=== PATIENT | female | born 2000 | race Hispanic/Latino ===

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

== ENCOUNTER 2021-02-18 21:09 | Emergency (ER) | payer MEDICAID ==
[~2021-02-18] VITALS: Ht 165.1 cm; Wt 106.6 kg
[2021-02-18] MEDS ORDERED: IBUPROFEN 800 MG TAB PO ONE (21:30)
[2021-02-18] MEDS ORDERED: ACETAMINOPHEN 500 MG TABLET PO ONE (21:30)
[2021-02-18] MEDS ORDERED: 0.9%NACL 1000ML 1,000 ML IV ONE (21:30)
[2021-02-18 21:49] LABS: BASOPHILS % (AUTO) 0.7 % (0.0-5.0); EOSINOPHILS % (AUTO) 10.7 % (0.0-8.0); HEMATOCRIT 41.4 % (36-48); LYMPHOCYTES % (AUTO) 18.4 % (21.0-51.0); MEAN CORPUSCULAR HEMOGLOBIN 28.8 pg (27.0-33.0); MEAN CORPUSCULAR HGB CONC 33.6 g/dL (32.0-36.0); MEAN CORPUSCULAR VOLUME 85.7 fL (80-100); MONOCYTES % (AUTO) 6.7 % (3.0-13.0); NEUTROPHILS % (AUTO) 63.2 % (40.0-77.0); PLATELET COUNT (AUTO) 303 K/uL (130-400); RED BLOOD CELL COUNT(AUTO) 4.83 MIL/uL (4.00-5.50); WHITE BLOOD COUNT (AUTO) 9.2 K/uL (4.8-10.8)
[2021-02-18 21:55] LABS: CREATININE 0.6 mg/dL (0.5-1.5); POTASSIUM 3.4 mmol/L (3.5-5.1)
[2021-02-18 21:57] LABS: APPEARANCE,URINE SL CLOUDY (CLEAR); BILIRUBIN,URINE NEGATIVE (NEGATIVE); COLOR,URINE YELLOW (YELLOW); GLUCOSE, URINE (UA) NEGATIVE (NEGATIVE); KETONES,URINE 5 mg/dL (NEGATIVE); LEUKOCYTE ESTERASE ,URINE TRACE (NEGATIVE); NITRATE,URINE NEGATIVE (NEGATIVE); OCCULT BLOOD,URINE SMALL (NEGATIVE); PH,URINE 5.5 (5.0-8.0); PROTEIN,URINE TRACE mg/dL (NEGATIVE)
[2021-02-18 21:59] LABS: ALBUMIN 3.7 g/dL (3.5-5.0); BILIRUBIN,TOTAL 0.9 mg/dL (0.2-1.0); TOTAL PROTEIN, SERUM 7.9 g/dL (6.0-8.3)
[2021-02-18 22:01] LABS: HCG,QUAL RESULT NEGATIVE (NEGATIVE)
[2021-02-18 22:18] LABS: BACTERIA,URINE Few /HPF (None Seen); SQUAMOUS EPITHELIAL CELL,UR Moderate /HPF (0-2)
[2021-02-18 22:19] LABS: MUCUS,URINE Rare LPF (None Seen)
[2021-02-18] MEDS ORDERED: POTASSIUM BICARB/CIT AC 25 MEQ TABLET.EFF PO ONE (22:30)
[2021-02-18] MEDS ORDERED: CEFTRIAXONE 1G VIAL IVP ONE (22:30)
[2021-02-18] MEDS ORDERED: CEPH500B PO (23:06)
[2021-02-18] MEDS ORDERED: IBUP-1552 PO (23:06)
[2021-02-18 23:07] VITALS: BP 118/72
[2021-02-18] MEDS ORDERED: ONDA4TAB10 PO (23:20)
[2021-02-18] MEDS ORDERED: ONDANSETRON 4MG INJ ONE (23:21)
[2021-02-18] MEDS ORDERED: ONDANSETRON 4MG INJ IVP ONE (23:30)
== END 2021-02-18 23:33 | disposition home or self-care (01) ==
LOC: EDH 21:09
DX: S93.401A Sprain of unspecified ligament of right ankle, initial encounter (principal); S80.11XA Contusion of right lower leg, initial encounter; S90.31XA Contusion of right foot, initial encounter; N39.0 Urinary tract infection, site not specified; R03.0 Elevated blood-pressure reading, without diagnosis of hypertension; Z20.822 Contact with and (suspected) exposure to COVID-19; E66.9 Obesity, unspecified; Z68.39 Body mass index [BMI] 39.0-39.9, adult; Z79.1 Long term (current) use of non-steroidal anti-inflammatories (NSAID); Z79.899 Other long term (current) drug therapy; W01.0XXA Fall on same level from slipping, tripping and stumbling without subsequent striking against object, initial encounter; Y93.89 Activity, other specified; Y92.89 Other specified places as the place of occurrence of the external cause; Y99.8 Other external cause status
CPT/HCPCS: 36415; 71045; 73590; 73600; 73630; 80053; 81001; 81025; 83605; 85025; 86140; 87040 ×2; 87635; 87804 ×2; 87880; 96361; 96374; 99284; C9803; J0696; J2405

== ENCOUNTER 2022-01-05 11:08 | Emergency (ER) | payer MEDICAID ==
[~2022-01-05] VITALS: Ht 165.1 cm; Wt 124.7 kg
[~2022-01-05 11:08] MED LIST: CEPH500B PO; IBUP-1552 PO; ONDA4TAB10 PO
[2022-01-05] MEDS ORDERED: ONDANSETRON 4MG INJ IVP ONE ×2 (11:30→13:30)
[2022-01-05 11:55] LABS: APPEARANCE,URINE SL CLOUDY (CLEAR); BILIRUBIN,URINE NEGATIVE (NEGATIVE); COLOR,URINE YELLOW (YELLOW); GLUCOSE, URINE (UA) NEGATIVE (NEGATIVE); KETONES,URINE NEGATIVE (NEGATIVE); LEUKOCYTE ESTERASE ,URINE NEGATIVE (NEGATIVE); NITRATE,URINE NEGATIVE (NEGATIVE); OCCULT BLOOD,URINE NEGATIVE (NEGATIVE); PROTEIN,URINE NEGATIVE (NEGATIVE); UROBILINOGEN,URINE 0.2 mg/dL (0.2-1.0)
[2022-01-05 11:59] LABS: CREATININE 0.5 mg/dL (0.5-1.5); POTASSIUM 4.2 mmol/L (3.5-5.1)
[2022-01-05 12:03] LABS: ALBUMIN 3.8 g/dL (3.5-5.0); TOTAL PROTEIN, SERUM 8.2 g/dL (6.0-8.3)
[2022-01-05 12:05] LABS: BASOPHILS % (AUTO) 0.9 % (0.0-5.0); EOSINOPHILS % (AUTO) 1.2 % (0.0-8.0); HEMATOCRIT 42.8 % (36-48); LYMPHOCYTES % (AUTO) 29.4 % (21.0-51.0); MEAN CORPUSCULAR HEMOGLOBIN 28.9 pg (27.0-33.0); MEAN CORPUSCULAR HGB CONC 34.1 g/dL (32.0-36.0); MEAN CORPUSCULAR VOLUME 84.6 fL (80-100); MONOCYTES % (AUTO) 7.3 % (3.0-13.0); NEUTROPHILS % (AUTO) 61.1 % (40.0-77.0); PLATELET COUNT (AUTO) 330 K/uL (130-400); RED BLOOD CELL COUNT(AUTO) 5.06 MIL/uL (4.00-5.50); RED CELL DISTRIBUTION WIDTH 12.6 % (11.0-15.5); WHITE BLOOD COUNT (AUTO) 8.1 K/uL (4.8-10.8)
[2022-01-05] MEDS ORDERED: KETOROLAC 15MG/ML VIAL (15MG/ML) IV ONE (13:30)
[2022-01-05] MEDS ORDERED: 0.9%NACL 1000ML 1,000 ML IV ONE (13:30)
[2022-01-05] MEDS ORDERED: MORPHINE 2 MG SYG IVP ONE (13:30)
[2022-01-05] MEDS ORDERED: FAMOTIDINE 20MG VIAL IV ONE (13:30)
[2022-01-05 15:04] VITALS: BP 110/53
[2022-01-05] MEDS ORDERED: DICY20TA2 PO (15:04)
[2022-01-05] MEDS ORDERED: BACI1CAP6 PO (15:04)
[2022-01-05] MEDS ORDERED: ONDA4TAB10 PO (15:04)
== END 2022-01-05 15:48 | disposition home or self-care (01) ==
LOC: EDH 11:08
DX: K52.9 Noninfective gastroenteritis and colitis, unspecified (principal); Z79.899 Other long term (current) drug therapy
CPT/HCPCS: 99284; 96374; 96375; 76705; 96361; 80053; 83690; 85025; 81003; 81025; 36415; 96376; J7030; J2405 ×2; J1885; S0028; J3490

== ENCOUNTER 2022-06-30 09:17 | Emergency (ER) | payer MEDICAID ==
[~2022-06-30] VITALS: Ht 165.1 cm; Wt 127.0 kg
[~2022-06-30 09:17] MED LIST changes: +BACI1CAP6 PO; +DICY20TA2 PO
[2022-06-30 09:40] LABS: BASOPHILS % (AUTO) 0.7 % (0.0-5.0); EOSINOPHILS % (AUTO) 1.8 % (0.0-8.0); HEMATOCRIT 46.8 % (36-48); LYMPHOCYTES % (AUTO) 39.8 % (21.0-51.0); MEAN CORPUSCULAR HGB CONC 33.1 g/dL (32.0-36.0); MEAN CORPUSCULAR VOLUME 84.6 fL (80-100); MONOCYTES % (AUTO) 6.8 % (3.0-13.0); NEUTROPHILS % (AUTO) 50.7 % (40.0-77.0); PLATELET COUNT (AUTO) 321 K/uL (130-400); RED BLOOD CELL COUNT(AUTO) 5.53 MIL/uL (4.00-5.50); RED CELL DISTRIBUTION WIDTH 12.7 % (11.0-15.5)
[2022-06-30 10:14] LABS: CREATININE 0.6 mg/dL (0.5-1.5); POTASSIUM 3.9 mmol/L (3.5-5.1)
[2022-06-30 10:19] LABS: ALBUMIN 3.7 g/dL (3.5-5.0)
[2022-06-30 11:00] VITALS: BP 132/76
[2022-06-30 11:25] LABS: APPEARANCE,URINE CLOUDY (CLEAR); BILIRUBIN,URINE NEGATIVE (NEGATIVE); COLOR,URINE YELLOW (YELLOW); GLUCOSE, URINE (UA) NEGATIVE (NEGATIVE); KETONES,URINE NEGATIVE (NEGATIVE); LEUKOCYTE ESTERASE ,URINE 75 Leu/uL (NEGATIVE); NITRATE,URINE NEGATIVE (NEGATIVE); OCCULT BLOOD,URINE NEGATIVE (NEGATIVE); PROTEIN,URINE 10 mg/dL (NEGATIVE); UROBILINOGEN,URINE 0.2 mg/dL (0.2-1.0)
[2022-06-30 11:32] LABS: HCG,QUALITATIVE URINE NEGATIVE (NEGATIVE)
[2022-06-30 11:33] LABS: MUCUS,URINE RARE LPF (None Seen); SQUAMOUS EPITHELIAL CELL,UR MANY /HPF (0-2)
[2022-06-30] MEDS ORDERED: CIPR-278 PO (11:52)
[2022-06-30] MEDS ORDERED: LOPE2CAP PO (11:52)
[2022-06-30] MEDS ORDERED: ONDA4TAB10 PO (11:52)
== END 2022-06-30 12:25 | disposition home or self-care (01) ==
LOC: EDH 09:17
DX: K52.9 Noninfective gastroenteritis and colitis, unspecified (principal); E66.9 Obesity, unspecified; Z20.822 Contact with and (suspected) exposure to COVID-19; Z79.899 Other long term (current) drug therapy; Z68.42 Body mass index [BMI] 45.0-49.9, adult
CPT/HCPCS: 99283; 87635; 80053; 85025; 87088; 87804 ×2; 81001; 81025; 36415; C9803

== ENCOUNTER 2022-12-14 08:03 | Emergency (ER) | payer MEDICAID ==
[~2022-12-14] VITALS: Ht 165.1 cm; Wt 127.0 kg
[~2022-12-14 08:03] MED LIST changes: +CIPR-278 PO; +LOPE2CAP PO
[2022-12-14 08:55] LABS: APPEARANCE,URINE CLOUDY (CLEAR); BILIRUBIN,URINE SMALL mg/dL (NEGATIVE); COLOR,URINE ORANGE (YELLOW); GLUCOSE, URINE (UA) 100 mg/dL (NEGATIVE); KETONES,URINE NEGATIVE (NEGATIVE); LEUKOCYTE ESTERASE ,URINE LARGE Leu/uL (NEGATIVE); NITRATE,URINE POSITIVE (NEGATIVE); OCCULT BLOOD,URINE MODERATE (NEGATIVE); PH,URINE 5.5 (5.0-8.0); PROTEIN,URINE 100 mg/dL (NEGATIVE); UROBILINOGEN,URINE >=8.0 mg/dL (0.2-1.0)
[2022-12-14 08:58] LABS: HCG,QUALITATIVE URINE NEGATIVE (NEGATIVE)
[2022-12-14 09:12] LABS: BASOPHILS % (AUTO) 0.5 % (0.0-5.0); EOSINOPHILS % (AUTO) 1.1 % (0.0-8.0); LYMPHOCYTES % (AUTO) 26.9 % (21.0-51.0); MEAN CORPUSCULAR HEMOGLOBIN 28.3 pg (27.0-33.0); MEAN CORPUSCULAR HGB CONC 32.7 g/dL (32.0-36.0); MEAN CORPUSCULAR VOLUME 86.4 fL (80-100); MONOCYTES % (AUTO) 5.2 % (3.0-13.0); NEUTROPHILS % (AUTO) 66.1 % (40.0-77.0); PLATELET COUNT (AUTO) 312 K/uL (130-400); RED BLOOD CELL COUNT(AUTO) 5.09 MIL/uL (4.00-5.50); RED CELL DISTRIBUTION WIDTH 12.4 % (11.0-15.5); WHITE BLOOD COUNT (AUTO) 9.1 K/uL (4.8-10.8)
[2022-12-14 09:13] LABS: BACTERIA,URINE Few /HPF (None Seen); WBC,URINE 51-100 /HPF (0-1)
[2022-12-14 09:14] LABS: TRICHOMONAS,URINE Rare /LPF (None Seen)
[2022-12-14 09:58] LABS: ALANINE AMINOTRANSFERASE 48 U/L (12-78); ALBUMIN 3.5 g/dL (3.5-5.0); ASPARTATE AMINOTRANSFERASE 22 U/L (10-37); CARBON DIOXIDE 26 mmol/L (21-32); CHLORIDE 101 mmol/L (101-111); CREATININE 0.6 mg/dL (0.5-1.5); GLOMERULAR FILTR. RATE CALC 131 mL/min (>90); GLUCOSE,RANDOM 91 mg/dL (70-105); POTASSIUM 3.6 mmol/L (3.5-5.1); SODIUM SERUM 134 mmol/L (136-145); TOTAL PROTEIN, SERUM 7.5 g/dL (6.0-8.3); UREA NITROGEN, BLOOD 6 mg/dL (7-18)
[2022-12-14 10:00] LABS: LIPASE < 50 U/L (114-286)
[2022-12-14] MEDS ORDERED: CEFTRIAXONE 2GM VIAL IVPB ONE (11:30)
[2022-12-14] MEDS ORDERED: 0.9%NACL 1000ML 1,000 ML IV ONE (11:30)
[2022-12-14] MEDS ORDERED: KETOROLAC 30MG VIAL (30MG/ML) IVP ONE (11:30)
[2022-12-14] MEDS ORDERED: CEPH500B PO (11:37)
[2022-12-14] MEDS ORDERED: PHEN-776 PO (11:37)
[2022-12-14] MEDS ORDERED: PHENAZOPYRIDINE HCL 200 MG TABLET PO ONE (12:00)
[2022-12-14 12:15] VITALS: BP 126/75
== END 2022-12-14 13:00 | disposition home or self-care (01) ==
LOC: EDH 08:03
DX: R11.2 Nausea with vomiting, unspecified (principal); N39.0 Urinary tract infection, site not specified; E66.01 Morbid (severe) obesity due to excess calories; Z68.42 Body mass index [BMI] 45.0-49.9, adult; Z79.899 Other long term (current) drug therapy
CPT/HCPCS: 99284; 96365; 96375; 80053; 84703; 83690; 85025; 87077; 87088; 87186; 81001; 81025; 36415; J0696; J1885

== ENCOUNTER → 2022-12-15 | Emergency (ER) | payer MEDICAID ==
[~2022-12-15] VITALS: Ht 165.1 cm; Wt 127.0 kg
[~2022-12-15] MED LIST changes: +PHEN-776 PO
[2022-12-15 10:33] VITALS: BP 138/73
== END ==
LOC: EDH 10:31
DX: N39.0 Urinary tract infection, site not specified (principal); Z53.21 Procedure and treatment not carried out due to patient leaving prior to being seen by health care provider
CPT/HCPCS: 99281

== ENCOUNTER 2023-06-07 17:08 | Emergency (ER) | payer MEDICAID, OTHER ==
[~2023-06-07] VITALS: Ht 165.1 cm; Wt 131.5 kg
[~2023-06-07 17:08] MED LIST changes: +NITR100C PO
[2023-06-07 17:56] VITALS: BP 159/97; PULSE 85; RESP 18
[2023-06-07] MEDS ORDERED: SULF1TAB42 PO (20:08)
== END 2023-06-07 20:24 | disposition home or self-care (01) ==
LOC: EDH 17:08
DX: N39.0 Urinary tract infection, site not specified (principal); E66.9 Obesity, unspecified; M54.50 Low back pain, unspecified; Z79.899 Other long term (current) drug therapy

== ENCOUNTER 2023-10-31 16:43 | Emergency (ER) | payer OTHER ==
[~2023-10-31] VITALS: Ht 165.1 cm; Wt 131.1 kg
[~2023-10-31 16:43] MED LIST changes: +ONDA-243 PO; -ONDA4TAB10 PO; +SULF1TAB42 PO
[2023-10-31 17:06] LABS: BASOPHILS # (AUTO) 0.05 K/uL (0.00-0.20); BASOPHILS % (AUTO) 0.6 % (0.0-5.0); EOSINOPHILS % (AUTO) 1.2 % (0.0-8.0); HEMATOCRIT 42.8 % (36-48); IMMATURE GRANULOCYTE ABSOLUTE 0.01 K/uL (0-1); LYMPHOCYTES % (AUTO) 36.2 % (21.0-51.0); MEAN CORPUSCULAR HEMOGLOBIN 28.9 pg (27.0-33.0); MEAN CORPUSCULAR HGB CONC 34.3 g/dL (32.0-36.0); MEAN CORPUSCULAR VOLUME 84.3 fL (79-99); MONOCYTES # (AUTO) 0.7 K/uL (0.1-1.0); MONOCYTES % (AUTO) 8.2 % (3.0-13.0); NEUTROPHILS # (AUTO) 4.5 K/uL (1.8-7.7); NEUTROPHILS % (AUTO) 53.7 % (40.0-77.0); PLATELET COUNT (AUTO) 351 K/uL (130-400); RED BLOOD CELL COUNT(AUTO) 5.08 MIL/uL (4.00-5.50); RED CELL DISTRIBUTION WIDTH 12.6 % (11.0-15.5); WHITE BLOOD COUNT (AUTO) 8.3 K/uL (4.8-10.8)
[2023-10-31] MEDS: 0.9%NACL 1000ML 1,000 ML IV ONE (17:09)
[2023-10-31 17:19] LABS: CREATININE 0.5 mg/dL (0.5-1.0); MAGNESIUM 1.7 mg/dL (1.80-2.40); POTASSIUM 3.1 mmol/L (3.5-5.1)
[2023-10-31 17:34] LABS: APPEARANCE,URINE CLOUDY (CLEAR); BILIRUBIN,URINE NEGATIVE (NEGATIVE); COLOR,URINE YELLOW (YELLOW); GLUCOSE, URINE (UA) NEGATIVE (NEGATIVE); KETONES,URINE NEGATIVE (NEGATIVE); LEUKOCYTE ESTERASE ,URINE 25 Leu/uL (NEGATIVE); NITRATE,URINE NEGATIVE (NEGATIVE); OCCULT BLOOD,URINE SMALL (NEGATIVE); PROTEIN,URINE NEGATIVE (NEGATIVE); UROBILINOGEN,URINE 0.2 mg/dL (0.2-1.0)
[2023-10-31 17:37] LABS: ADD UA MICROSCOPIC YES
[2023-10-31 17:38] LABS: MUCUS,URINE RARE LPF (None Seen); RBC,URINE 26-50 /HPF (0-1); SQUAMOUS EPITHELIAL CELL,UR MANY /HPF (0-2); YEAST,URINE BUDDING RARE /HPF (None Seen)
[2023-10-31] MEDS: POTASSIUM BICARB/CIT AC 25 MEQ TABLET.EFF PO ONE (17:51)
[2023-10-31] MEDS: MAGNESIUM 2GM PREMIX 50ML 50 ML IV SCH (17:51)
[2023-10-31 19:02] VITALS: BP 131/82; PULSE 90; RESP 16; O2SAT 100
== END 2023-10-31 19:14 | disposition home or self-care (01) ==
LOC: EDH 16:43
DX: E86.0 Dehydration (principal); E87.6 Hypokalemia; E83.42 Hypomagnesemia; E66.9 Obesity, unspecified; Z68.42 Body mass index [BMI] 45.0-49.9, adult
CPT/HCPCS: 99284; 96365; 96361; 82550; 83735; 80048; 85025; 87088; 81001; 36415; J3475; J7030

== ENCOUNTER 2023-11-22 11:34 | Emergency (ER) | payer OTHER ==
[~2023-11-22] VITALS: Ht 165.1 cm; Wt 130.2 kg
[2023-11-22 12:10] LABS: APPEARANCE,URINE CLOUDY (CLEAR); BILIRUBIN,URINE NEGATIVE (NEGATIVE); COLOR,URINE DARK-YELLOW (YELLOW); GLUCOSE, URINE (UA) NEGATIVE (NEGATIVE); KETONES,URINE NEGATIVE (NEGATIVE); LEUKOCYTE ESTERASE ,URINE NEGATIVE Leu/uL (NEGATIVE); NITRATE,URINE 1+ (NEGATIVE); OCCULT BLOOD,URINE MODERATE (NEGATIVE); PH,URINE 5.5 (5.0-8.0); PROTEIN,URINE 10 mg/dL (NEGATIVE)
[2023-11-22 12:18] LABS: ADD UA MICROSCOPIC YES
[2023-11-22 12:20] LABS: HCG,QUALITATIVE URINE NEGATIVE (NEGATIVE)
[2023-11-22 12:28] LABS: MUCUS,URINE RARE LPF (None Seen); RBC,URINE 51-100 /HPF (0-1); SQUAMOUS EPITHELIAL CELL,UR MOD /HPF (0-2); WBC,URINE 0-1 /HPF (0-1)
[2023-11-22 12:29] LABS: BACTERIA,URINE Few /HPF (None Seen)
[2023-11-22] MEDS ORDERED: KETOROLAC 60 MG VIAL (30MG/ML) IM ONE (13:00)
[2023-11-22] MEDS ORDERED: DEXAMETHASONE SOD PHOSPHATE 4 MG/ML 1ML VIAL IM ONE (13:00)
[2023-11-22 13:50] VITALS: BP 135/82; PULSE 70; RESP 18; O2SAT 97
== END 2023-11-22 14:02 | disposition home or self-care (01) ==
LOC: EDH 11:34
DX: R30.0 Dysuria (principal); M54.50 Low back pain, unspecified; E66.9 Obesity, unspecified; Z68.30 Body mass index [BMI] 30.0-30.9, adult; Z79.899 Other long term (current) drug therapy; Z79.2 Long term (current) use of antibiotics
CPT/HCPCS: 81001; 81025; 87086; J1100; J1885

== ENCOUNTER 2024-06-02 21:41 | Emergency (ER) | payer SELFPAY ==
[~2024-06-02] VITALS: Ht 165.1 cm; Wt 136.1 kg
[2024-06-02] MEDS ORDERED: prednisoLONE 15 MG/5 ML SOLN PO SCH (22:00)
--- NOTE | 2024-06-02 22:01 | ERN ---
General Chief Complaint: Blister/Cold Sore Stated Complaint: C/O SORE THROAT WITH BLISTERS TO MOUTH X 3 DAYS Time Seen by MD: 21:46 Source: patient History of Present Illness Initial Comments Patient is a 24-year-old female coming in to be evaluated for oral lesions. She states that she feels as if there is a lesion on her tongue. No other current complaints. 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 06/07/23 Nitrofurantoin Macrocrystal (Nitrofurantoin) 100 Mg Capsule, 100 MG PO BID for 5 Days, #10 CAP 0 Refills Prov:ENMANUEL KIM [employer]APING MACHINE OPERATOR 02/25/23 Phenazopyridine HCl (Pyridium) 200 Mg Tablet, 200 MG PO TID for painful urination, #5 TAB 0 Refills Prov:JORGE PHILLIP Sr., MD 12/14/22 Cephalexin Monohydrate (Keflex) 500 Mg Cap, 500 MG PO QID for 10 Days, #40 CAP 0 Refills Prov:JORGE PHILLIP Sr., MD 12/14/22 Ondansetron (Ondansetron Odt) 4 Mg Tab.rapdis, 4 MG PO Q6HPRN PRN for nausea, #16 TAB 0 Refills Prov:KRISSY PARRISH MD 06/30/22 Loperamide HCl (Loperamide) 2 Mg Capsule, 2 MG PO 5XDAY for diarrhea, #10 CAP 0 Refills Take 2 tablets initially and then 1 tablet with every loose bowel movement. Prov:KRISSY PARRISH MD 06/30/22 Ciprofloxacin HCl (Cipro) 500 Mg Tablet, 1 TAB PO BID for 10 Days, #20 TAB 0 Refills Prov:KRISSY PARRISH MD 06/30/22 Bacillus Coagulans (Probiotic) 1 Each Capsule.dr, 1 EACH PO DAILY, #30 CAP Prov:SUSIE MOFFETT 01/05/22 Dicyclomine HCl (Bentyl) 20 Mg Tab, 20 MG PO TID PRN for ABDOMINAL PAIN, #15 TAB Prov:SUSIE MOFFETT 01/05/22 Ondansetron (Ondansetron Odt) 4 Mg Tab.rapdis, 4 MG PO TID, #15 TAB Prov:SUSIE MOFFETT [facility] 01/05/22 Ondansetron (Ondansetron Odt) 4 Mg Tab.rapdis, 4 MG PO QIDP, #28 TAB Prov:TERESADAKSHA PA 02/18/21 Ibuprofen (Ibu) 400 Mg Tablet, 800 MG PO TIDAC, #60 TAB Prov:DAKSHA MOORE 02/18/21 Cephalexin Monohydrate (Keflex) 500 Mg Cap, 500 MG PO TID for 7 Days, #21 CAP Prov:TERESADAKSHA PA 02/18/21 Past Medical History Past Medical History: No Pertinent History Medical History Other: Obesity Past Surgical History: None Social History Social History: Negative, Lives with family Female( History) LMP: Apr 12, 2024 : 0 Para: 0 Aborts: 0 ROS Dictation CONSTITUTIONAL: No chills, no fever, no weakness, no diaphoresis, no malaise. HEAD/FACE: No signs of trauma. EENT: No eye pain, no blurred vision, no tearing, no double vision, no ear pain, no ear discharge, no nose pain, no nasal congestion, no throat pain, no throat swelling, no mouth pain. RESPIRATORY: No cough, no orthopnea, no SOB, no stridor, no wheezing. CARDIOVASCULAR: No chest pain, no edema, no palpitations, no syncope. GASTROINTESTINAL/ABDOMINAL: No abdominal pain, no constipation, no diarrhea, no nausea, no vomiting. GENITOURINARY: No abnormal discharge, no dysuria, no frequent urination, no hematuria. No complaints of pain in the genitals. MUSCULOSKELETAL: No back pain, no gout, no joint pain, no joint swelling, no muscle pain, no muscle stiffness, no neck pain. INTEGUMENTARY: No change in color, no change in hair/nails, no dryness, no lesion, no lumps, no rash. NEUROLOGICAL/PSYCH: No anxiety, not depressed, no emotional problem, no headache, no numbness, no pre-existing deficit, no history of seizures, no tremors, no weakness. HEMATOLOGIC/LYMPHATIC: Not anemic, no history of blood clots, no apparent bleeding, no bruising, glands not swollen. All Systems Negative, Except as Noted. Physical Exam Physical Exam Dictation VITAL SIGNS: Reviewed. GENERAL APPEARANCE: Alert, oriented x3, no acute distress, obese. HEAD AND FACE: Non-traumatic. EYES: PERRL, pink conjunctivas, eyelid no trauma, anterior chamber clear. EARS: Pinnas intact and no signs of trauma or erythema. Ear canals clear and no discharge. TMs no erythema. NOSE: No discharge, no bleeding. OROPHARYNX: Mouth normal, teeth no caries, tongue pink. Pharynx clear, no erythema. Tonsils no exudates, no abscesses noted. Mucous membrane moist. NECK: Supple, non-tender, no thyromegaly, no masses, no JVD, no bruits. BREAST: Deferred. CHEST: No tenderness, no crepitus, no paradoxical movement, no retractions. LUNGS: Clear, well-ventilated, symmetric, no rales, no wheezing, no rhonchi, no stridor, good breath sounds bilaterally. HEART: Regular rate, regular rhythm, no murmur, no gallops. VASCULAR: No peripheral edema. ABDOMEN: Soft, positive bowel sounds, nondistended, no guarding, nontender, no rebound, no masses no hepatomegaly, no splenomegaly, no Vick's sign, no hernias. RECTAL: Deferred. GENITAL: Deferred. NEUROLOGICAL: Normal speech, gross motor function intact, gross sensory function intact. MUSCULOSKELETAL: Neck nontender, full range of motion, back nontender, full range of motion. EXTREMITIES: Nontender, full range of motion. SKIN: Color pink, dry, no turgor, no rash, no lacerations, no abrasions, no contusions. LYMPHATICS: Deferred. Results Laboratory and Microbiology Labs Reviewed?: Yes MDM MDM: Differential diagnosis: Herpangina, irritation of the tongue, Patient is a 24-year-old female coming in to be evaluated for oral lesions. On physical evaluation or lesions are hard to appreciate. Patient did receive some oral steroids and will be discharged in stable condition I advised her appropriate follow up with PCP. ED Course Orders Procedure Category Date Status Time Prednisolone 15mg/5ml PHA 06/02/24 In Process Soln (Orapred 15mg 22:00 Current Medications Medications (Trade) Dose Ordered Sig/[place] Route PRN Reason Start Time Stop Time Status Last Admin Dose Admin Prednisolone Sodium Phosphate (oraPRED 15MG/ 5ML SOLN) 5 mg ONCE PO 06/02/24 22:00 07/02/24 21:59 Vital Signs Date Time Temp Pulse Resp B/P (MAP) Pulse Ox O2 Delivery O2 Flow Rate FiO2 06/02/24 21:46 98.8 94 20 160/97 99 Room Air DX & DISP Disposition: Discharge Departure Impression: Primary Impression: Oral mucosal lesion Condition: Stable Additional Instructions: FOLLOW-UP WITH PRIMARY CARE PROVIDER IN 1 TO 2 DAYS. TAKE MEDICATIONS DIRECTED HERE IN THE EMERGENCY ROOM. OKAY TO CONTINUE HOME MEDICATIONS UNLESS OTHERWISE DISCUSSED DURING YOUR VISIT IN THE EMERGENCY ROOM TODAY. RETURN TO YOUR NEAREST EMERGENCY ROOM IF SYMPTOMS WORSEN OR IF THERE IS NO IMPROVEMENT. CALL 911 IF YOU NEED IMMEDIATE ASSISTANCE. TAKE TYLENOL [id number] NEEDED AND IF NO CONTRAINDICATIONS ARE PRESENT. INCREASE ORAL HYDRATION. A WOUND CULTURE OR URINE CULTURE WAS ORDERED HERE IN THE EMERGENCY ROOM DEPARTMENT PLEASE FOLLOW-UP WITH PRIMARY CARE PROVIDER AND ADVISE THEM TO GET REPEAT PORTS FROM OUR FACILITY. IF YOU HAD ANY NUPUR WRAP/SPLINTS THAT WERE APPLIED HERE, P DAE DO NOT REMOVE THEM UNTIL YOU SEE YOUR PRIMARY CARE OR SPECIALTY. Referrals: Referrals: NONE (PCP) CASSIE REDD MD Time of Disposition: 22:00 LILLI MARTINEZ MD Jun 02, 2024 22:01
--- NOTE | 2024-06-02 22:14 | NUR ---
CALLED FOR PT FROM [facility] TO MOVE TO FT; NO RESPONSE. PT NOT FOUND IN LOBBY.
[2024-06-02 22:51] VITALS: BP 154/89; PULSE 89; RESP 16; TEMP 98.2; O2SAT 99
--- NOTE | 2024-06-02 22:54 | NUR ---
PT LEFT WITHOUT D/C INSTRUCTIONS
== END 2024-06-02 22:55 | disposition home or self-care (01) ==
LOC: EDH 21:41
DX: K13.70 Unspecified lesions of oral mucosa (principal); E66.9 Obesity, unspecified
CPT/HCPCS: 99282